=== PATIENT | female | born 1965 | race Caucasian/White ===

== ENCOUNTER 2016-08-27 02:41 | Emergency (ER) | payer BC ==
[~2016-08-27] VITALS: Ht 167.6 cm; Wt 75.6 kg
[2016-08-27 03:46] LABS: ADD MIUA? YES; BILIRUBIN NEGATIVE; BLOOD NEGATIVE; COLOR YELLOW ((YELLOW)); GLUCOSE (STRIP) NEGATIVE; KETONES NEGATIVE; LEUKOCYTES LARGE; NITRITE NEGATIVE; PROTEIN (STRIP) NEGATIVE; SPECIFIC GRAVITY 1.018 (1.000-1.030); UROBILINOGEN 0.2 MG/DL (0.2-1.0)
[2016-08-27 03:53] LABS: BACTERIA NONE SEEN /HPF; EPITHELIAL CELLS RARE /HPF; MUCUS TRACE /LPF; RED BLOOD CELLS 0-5 /HPF (0-5); UCUL ADDED? NO
[2016-08-27 04:14] LABS: HEMATOCRIT 43.6 % (36.0-46.0); MCHC 31.7 G/DL (30.0-36.0); MCV 88.6 FL (83-99); MEAN PLAT.VOLUME 9.4 uM^3 (9.5-12.4); PLATELET COUNT 267 K/uL (156-360); RBC DIS.WIDTH-CV 12.4 % (11.8-14.6); RBC DIS.WIDTH-SD 40.4 % (39-53); RED BLOOD COUNT 4.92 M/uL (3.80-5.20); WHITE BLOOD COUNT 8.4 K/uL (4.1-10.2)
[2016-08-27 04:25] LABS: CHLORIDE 108 mEq/L (99-109); POTASSIUM 3.9 mEq/L (3.7-5.4); SODIUM 139 mEq/L (136-147)
[2016-08-27 04:27] LABS: GLUCOSE 124 mg/dL (70-99)
[2016-08-27 04:28] LABS: ANION GAP 11 MEQ/L (2-14)
[2016-08-27 04:29] LABS: TOTAL BILIRUBIN 0.6 mg/dL (0.0-1.0)
[2016-08-27 04:30] LABS: ALKALINE PHOSPHATASE 143 IU/L (3-129)
[2016-08-27 04:31] LABS: GFR ESTIMATE (CALCULATED) > 59 mL/min/
[2016-08-27 04:32] LABS: UREA NITROGEN (BUN) 13 mg/dL (9-23)
[2016-08-27 04:34] LABS: LIPASE 26 U/L (1.0-51.0)
[2016-08-27] MEDS ORDERED: ZOFRAN4 MG PO (04:42)
[2016-08-27] MEDS ORDERED: OXAYDO5 MG PO (04:42)
[2016-08-27 04:44] LABS: QUANTITATIVE HCG < 4.0 MIU/ML
[2016-08-27 05:22] VITALS: BP 143/89
== END 2016-08-27 05:24 | disposition home or self-care (01) ==
LOC: EME 02:41
PROVIDERS: Emergency Medicine
DX: K80.50 Calculus of bile duct without cholangitis or cholecystitis without obstruction (principal); R10.11 Right upper quadrant pain; Z88.6 Allergy status to analgesic agent
CPT/HCPCS: 76705; 80053; 81003; 83605; 83690; 84702; 85027; 93005; 99281; 99284; J2270; J2405; J7030

== ENCOUNTER → 2017-04-12 | Outpatient (CLI) | payer BC ==
[~2017-04-12] MED LIST: OXAYDO5 MG PO; ZOFRAN4 MG PO
== END | disposition home or self-care (01) ==
LOC: NUC 08:00
DX: E05.00 Thyrotoxicosis with diffuse goiter without thyrotoxic crisis or storm (principal)
CPT/HCPCS: 78014; 78999; A9516